=== PATIENT | female | born 1960 | race Caucasian/White ===

== ENCOUNTER 2020-03-26 05:48 | Emergency (ER) | payer OTHER ==
[~2020-03-26] VITALS: Ht 172.7 cm; Wt 102.2 kg
--- NOTE | 2020-03-26 06:11 | NUR ---
PT HAVING SOB WITH ACTIVITY AT HOME, AND STATES EPIGASTRIC PAIN AND LEFT SIDED INTERMITTENT CHEST PAIN. PT PLACED ON ALL MONITORS, ERP AT BEDSIDE FOR EVAL.
--- NOTE | 2020-03-26 06:29 | NUR ---
EKG DONE IN TRIAGE.
[2020-03-26 06:37] LABS: BASOPHILS % (AUTO) 1 % (0-1); EOSINOPHILS % (AUTO) 2 % (1-7); LYMPHOCYTES % (AUTO) 29 % (22-44); MEAN CORPUSCULAR HGB CONC 33.2 g/dL (32.4-35.8); MEAN PLATELET VOLUME 7.4 fL (7.4-10.4); MONOCYTES % (AUTO) 7 % (2-9); NEUTROPHILS % (AUTO) 61 % (42-75); PLATELET COUNT 273 x10^3/uL (130-400); RED BLOOD COUNT 4.77 x10^6/uL (3.82-5.3); RED CELL DISTRIBUTION WIDTH 12.7 % (9.6-15.2)
[2020-03-26 06:39] LABS: MD NO
[2020-03-26 06:50] LABS: ALANINE AMINOTRANSFERASE 24 U/L (12-78); ALBUMIN 3.4 g/dL (3.4-5.0); ANION GAP 4 mmol/L (5-15); CALCIUM 8.7 mg/dL (8.5-10.1); CHLORIDE 110 mmol/L (98-107); CREATININE 0.59 mg/dL (0.55-1.02)
[2020-03-26 06:54] LABS: ALKALINE PHOSPHATASE 89 U/L (45-117); BILIRUBIN,TOTAL 0.4 mg/dL (0.2-1.0); TOTAL PROTEIN 7.5 g/dL (6.4-8.2); TROPONIN I < 0.015 ng/mL (0.000-0.045)
--- NOTE | 2020-03-26 06:58 | NUR ---
REPORT GIVEN TO REINA CHOWDARY.
--- NOTE | 2020-03-26 07:20 | NUR ---
PT WITH DENIES CHEST PAIN AT THIS TIME, STATES SHE HAS SMALL MORIN. ERMD IN TO UPDATE PT, ADDITIONAL ORDERS RECIEVED, VSS, NO NEEDS AT THIS TIME
--- NOTE | 2020-03-26 09:41 | NUR ---
LAB IN TO DRAW PT AT THIS TIME, VSS, NO NEEDS
[2020-03-26 10:07] LABS: TROPONIN I < 0.015 ng/mL (0.000-0.045)
[2020-03-26 12:02] VITALS: BP 145/89
== END 2020-03-26 12:05 | disposition home or self-care (01) ==
LOC: ED 06:55
DX: R07.89 Other chest pain (principal); R06.00 Dyspnea, unspecified; R06.02 Shortness of breath; G89.29 Other chronic pain
CPT/HCPCS: 36415; 71045; 80053; 83690; 84484; 85025; 85379; 93005; 99285

== ENCOUNTER 2020-05-07 18:31 | Emergency (ER) | payer OTHER ==
[~2020-05-07] VITALS: Ht 172.7 cm; Wt 102.0 kg
--- NOTE | 2020-05-07 18:34 | NUR ---
CONTROL SYSTEMS ENG: NA X 1
[2020-05-07] MEDS ORDERED: PROCHLORPERAZINE 5 MG/ML, 2ML ONE (19:15)
[2020-05-07] MEDS ORDERED: DIPHENHYDRAMINE 50 MG/ML, 1ML ONE (19:16)
[2020-05-07] MEDS ORDERED: KETOROLAC 30 MG/1 ML ONE (19:16)
[2020-05-07 19:23] LABS: BASOPHILS % (AUTO) 1 % (0-1); EOSINOPHILS % (AUTO) 1 % (1-7); LYMPHOCYTES % (AUTO) 26 % (22-44); MEAN CORPUSCULAR HEMOGLOBIN 28.9 pg (27.0-34.8); MEAN CORPUSCULAR HGB CONC 33.4 g/dL (32.4-35.8); MEAN PLATELET VOLUME 7.4 fL (7.4-10.4); MONOCYTES % (AUTO) 5 % (2-9); NEUTROPHILS % (AUTO) 68 % (42-75); PLATELET COUNT 257 x10^3/uL (130-400); RED CELL DISTRIBUTION WIDTH 12.5 % (9.6-15.2)
[2020-05-07 19:29] LABS: ALBUMIN 3.5 g/dL (3.4-5.0); ANION GAP 7 mmol/L (5-15); CALCIUM 8.6 mg/dL (8.5-10.1); CHLORIDE 107 mmol/L (98-107); CREATININE 0.59 mg/dL (0.55-1.02)
[2020-05-07] MEDS ORDERED: SODIUM CHLORIDE 0.9% 1,000ML IVBOLUS ONE (19:30)
[2020-05-07] MEDS ORDERED: KETOROLAC 30 MG/1 ML IVPush ONE (19:30)
[2020-05-07] MEDS ORDERED: PROCHLORPERAZINE 5 MG/ML, 2ML IVPush ONE (19:30)
[2020-05-07] MEDS ORDERED: DIPHENHYDRAMINE 50 MG/ML, 1ML IVPush ONE (19:30)
[2020-05-07] MEDS ORDERED: SODIUM CHLORIDE FLUSH 10ML SYR IVF ONE (19:30)
[2020-05-07 19:31] LABS: MD NO
--- NOTE | 2020-05-07 19:53 | NUR ---
Pt back from ct. On monitor. Pt states slight relife of MORIN but still in pain. Call light in reach. Will monitor.
[2020-05-07] MEDS ORDERED: DEXAMETHASONE 4 MG/ML, 1ML IVPush ONE (20:30)
[2020-05-07] MEDS ORDERED: DEXAMETHASONE 4 MG/ML, 1ML ONE (20:41)
[2020-05-07 20:57] VITALS: BP 142/80
--- NOTE | 2020-05-07 20:59 | NUR ---
Pt IV dc'd intact. Pt dc'd with written and verbal instructions. Pt home with a ride. pt instructed to f/u with PCP. Pt A&O, stable on feet. Pt states she understands instructions.
== END 2020-05-07 21:02 | disposition home or self-care (01) ==
LOC: ED 20:47
DX: B34.9 Viral infection, unspecified (principal); Z20.822 Contact with and (suspected) exposure to COVID-19; R51.9 Headache, unspecified; R19.7 Diarrhea, unspecified; R09.81 Nasal congestion; G89.29 Other chronic pain; Z88.9 Allergy status to unspecified drugs, medicaments and biological substances; Z79.899 Other long term (current) drug therapy
CPT/HCPCS: 70450; 80048; 82040; 85025; 87635; 93005; 96361; 96374; 96375; 99285; J0780; J1100; J1200; J1885; J7030